=== PATIENT | male | born 1980 | race African-American/Black ===

== ENCOUNTER 2018-12-11 12:57 | Emergency (ER) | payer OTHER, SELFPAY | END 2018-12-11 14:04 | disposition home or self-care (01) | LOC: ERS 12:57 | DX: J45.909 Unspecified asthma, uncomplicated (principal); Z79.51 Long term (current) use of inhaled steroids; Z87.891 Personal history of nicotine dependence | CPT/HCPCS: J7620 ==

== ENCOUNTER 2022-07-20 08:56 | Emergency (ER) | payer SELFPAY ==
[2022-07-20] MEDS ORDERED: Ipratropium Bromide 2.5 ml Neb ONE (09:40)
[2022-07-20] MEDS ORDERED: Magnesium 2 GM/50 ML BAG (IN WATER) ONE (09:46)
== END 2022-07-20 12:24 | disposition home or self-care (01) ==
LOC: ERS 08:56
DX: J45.901 Unspecified asthma with (acute) exacerbation (principal)
CPT/HCPCS: 93005; 94644; 96374; J3475; J7611

== ENCOUNTER 2024-03-01 12:40 | Emergency (ER) | payer SELFPAY ==
[2024-03-01] MEDS ORDERED: Ipratropium/Albuterol 3 ML NEB ONE (12:59)
[2024-03-01] MEDS ORDERED: methylPREDNISolone Sod Succ/PF 125 MG/2 ML VIAL ONE (12:59)
[2024-03-01 13:12] LABS: #Basophils Less than 0.03 10x3/uL (0.0-0.2); %Basophils 0.4 % (0.0-1.0); %Eosinophils 8.1 % (0.0-10.0); %Lymphocytes 35.2 % (21.0-51.0); %Monocytes 5.3 % (0.0-10.0); Hematocrit 43.1 % (42.0-52.0); Hemoglobin 14.2 g/dL (14.0-18.0); Mean Corpuscular HGB CONC 32.9 g/dL (32.0-36.0); Mean Corpuscular Hemoglobin 28.5 pg (27.0-31.0); Mean Corpuscular Volume 86.5 fL (78.0-98.0); Mean Platelet Volume 8.6 fL (7.4-10.4); Platelet Count 331 10x3/uL (130-400); Red Blood Cell (RBC) Count 4.98 mill/uL (4.70-6.10)
[2024-03-01 13:42] LABS: ALT (SGPT) 22 U/L (8-55); AST (SGOT) 19 U/L (5-34); Albumin 4.1 g/dL (3.5-5.0); Alkaline Phosphatase 88 U/L (40-110); Anion Gap 12 mmol/L (10-20); BUN (Urea Nitrogen) 18 mg/dL (8.9-20.6); Bilirubin, Total 0.7 mg/dL (0.2-1.2); Calc. Creatinine Clearance 0 mL/min (70-130); Calcium 9.5 mg/dL (7.8-10.44); Carbon Dioxide 23 mmol/L (22-29); Chloride 107 mmol/L (98-107); Estimated GFR 102; Glucose 126 mg/dL (70-105); Potassium 3.7 mmol/L (3.5-5.1); Protein, Total 8.1 g/dL (6.0-8.3); Sodium 138 mmol/L (136-145)
== END 2024-03-01 14:45 | disposition home or self-care (01) ==
LOC: ERS 12:40
DX: J45.901 Unspecified asthma with (acute) exacerbation (principal)
CPT/HCPCS: 71045; 80053; 85025; 93005; 94640; 96374; J2919; J7620